=== PATIENT | female | born 1995 ===

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

== ENCOUNTER 2018-02-09 00:35 | Emergency (ER) | payer MEDICAID ==
--- NOTE | 2018-02-09 00:43 | C.PDOC ---
History Of Present Illness Patient presents to the ED with RLQ pain since yesterday. She describes the pain as sharp, stabbing and non-radiating. Patient is able to tolerate PO and denies nausea, vomiting, diarrhea, fever and chills. Time Seen by Provider: 02/09/18 00:43 History Per: Patient History/Exam Limitations: no limitations Onset/Duration Of Symptoms: Days Current Symptoms Are (Timing): Still Present Severity: Moderate Pain Scale Rating Of: 4 Location Of Pain/Discomfort: RLQ Radiation Of Pain To:: None Quality Of Discomfort: Sharp, Stabbing, Other (non-radiating ) Associated Symptoms: denies: Fever, Chills, Nausea, Vomiting, Diarrhea Exacerbating Factors: None Alleviating Factors: None Recent travel outside of the [place]: No Past Medical History Reviewed: Historical Data, Nursing Documentation, Vital Signs Family History: States: No Known Family Hx - Social History Hx Alcohol Use: No Hx Substance Use: No Review Of Systems Constitutional: Negative for: Fever, Chills Cardiovascular: Negative for: Chest Pain, Palpitations Respiratory: Negative for: Cough, Shortness of Breath Gastrointestinal: Positive for: Abdominal Pain (RLQ ). Negative for: Nausea, Vomiting, Diarrhea Neurological: Negative for: Weakness, Numbness Physical Exam - Physical Exam Appears: Non-toxic Skin: Warm, Dry Head: Normacephalic Oral Mucosa: Moist Neck: Supple Chest: Symmetrical, No Tenderness Cardiovascular: Rhythm Regular Respiratory: No Rales, No Rhonchi, No Wheezing Gastrointestinal/Abdominal: Soft, Tenderness (RLQ), Guarding (voluntary), Rebound (mild) Neurological/Psych: Oriented x3 ED Course And Treatment - Laboratory Results Result Diagrams: 02/09/18 01:30 02/09/18 01:30 ECG: Interpreted By Wa O2 Sat by Pulse Oximetry: 100 Pulse Ox Interpretation: Normal Progress Note: Ordered blood work and urinalysis. Administered Famotidine and IV fluids. Reevaluation Time: 04:27 Reassessment Condition: Improved Disposition Counseled Patient/Family Regarding: Studies Performed, Diagnosis, Need For Followup, Rx Given - Disposition Referrals: [facility] [Outside] [facility] [Outside] Disposition: HOME/ ROUTINE Disposition Time: 00:43 Condition: FAIR Additional Instructions: Please return if symptoms recur Prescriptions: Metronidazole [Flagyl] 500 mg PO TID #21 tablet Instructions: Acute Abdomen (Belly Pain), Adult (DC), Anemia Caused by Low Iron - Clinical Impression Clinical Impression: Abdominal pain, Microcytic anemia, Enteritis - Scribe Statement The provider has reviewed the documentation as recorded by the Scribe (Dayami Nash) All medical record entries made by the Scribe were at my direction and personally dictated by me. I have reviewed the chart and agree that the record accurately reflects my personal performance of the history, physical exam, medical decision making, and the department course for this patient. I have also personally directed, reviewed, and agree with the discharge instructions and disposition.
[2018-02-09] MEDS ORDERED: Sodium Chloride 0.9% 1,000 ML IV ONE (00:46)
[2018-02-09 00:54] VITALS: RESP 16; O2SAT 100; BMI 25.4
[2018-02-09 01:37] LABS: BASO % 0.2 % (0.0-2.0); EOS # 0.1 K/uL (0.0-0.7); EOS % 1.4 % (0.0-4.0); HEMOGLOBIN 7.2 g/dL (11.0-16.0); LYMPH # 3.1 K/uL (1.0-4.3); MEAN CORPUSCULAR HGB CONC 27.7 g/dL (33.0-37.0); MONO # 0.7 K/uL (0.0-0.8); MONO % 7.4 % (0.0-10.0); NEUT # 4.9 K/uL (1.8-7.0); RBC 4.48 Mil/uL (3.80-5.20); WHITE BLOOD COUNT 8.8 K/uL (4.8-10.8)
[2018-02-09 01:37] LABS: HCG,QUALITATIVE URINE NEGATIVE (NEGATIVE)
[2018-02-09 01:38] LABS: MEAN CELL VOLUME 57.8 fL (81.0-99.0)
[2018-02-09 01:42] LABS: INR 1.2; PROTHROMBIN TIME 12.7 SECONDS (9.7-12.2)
[2018-02-09 01:42] LABS: SQUAMOUS EPITHIAL 8 /hpf (0-5); URINE BACTERIA RARE (<OCC); URINE BILIRUBIN NEGATIVE (NEGATIVE); URINE BLOOD NEGATIVE (NEGATIVE); URINE CLARITY Hazy (Clear); URINE COLOR Yellow (YELLOW); URINE GLUCOSE (UA) NORMAL (Normal); URINE LEUKOCYTE ESTERASE 3+ Leu/uL (Negative); URINE PROTEIN NEGATIVE (NEGATIVE); URINE UROBILINOGEN NORMAL mg/dL (0.2-1.0)
[2018-02-09] MEDS ORDERED: Piperacillin/Tazobact 3.375 gm 100 ML IVPB STA (01:47)
[2018-02-09 01:50] LABS: ALB/GLOB RATIO 1.4 (1.0-2.1); ALBUMIN 4.4 g/dL (3.5-5.0); ALT/SGPT 21 U/L (9-52); AST/SGOT 15 U/L (14-36); BLOOD UREA NITROGEN 8 mg/dL (7-17); GFR NON-AFRICAN AMERICAN > 60
[2018-02-09] MEDS ORDERED: Piperacillin/Tazobact 3.375 gm 100 ML IVPB ONE (02:08)
[2018-02-09 02:20] LABS: LIPASE 98 U/L (23-300)
[2018-02-09] MEDS ORDERED: Iodixanol 320 MG/ML 100 ML BOTTLE IV ONE (02:26)
[2018-02-09 04:52] VITALS: BP 122/82; PULSE 88; TEMP 100
--- NOTE | 2018-02-09 12:19 | CT ---
Date of service: 02/09/2018 PROCEDURE: CT Abdomen and Pelvis with contrast HISTORY: rlq pain COMPARISON: None available. TECHNIQUE: Contrast dose: 100 mL Visipaque IV Radiation dose: Total exam DLP = 627.67 mGy-cm. This CT exam was performed using one or more of the following dose reduction techniques: Automated exposure control, adjustment of the mA and/or kV according to patient size, and/or use of iterative reconstruction technique. FINDINGS: LOWER THORAX: No visible consolidation, pleural effusion, or pneumothorax. LIVER: Unremarkable. GALLBLADDER AND BILE DUCTS: Unremarkable. PANCREAS: Unremarkable. SPLEEN: Unremarkable. ADRENALS: Unremarkable. KIDNEYS AND URETERS: The kidneys enhance symmetrically. No hydronephrosis or obstructing calculus identified. VASCULATURE: No aortic aneurysm. BOWEL: Stomach is nondistended. Lack of oral contrast limits evaluation for bowel pathology. Bowel loops appear within normal limits of caliber without evidence of obstruction. APPENDIX: The appendix appears within normal limits of caliber. No secondary signs of acute appendicitis. PERITONEUM: No significant free fluid. No definite free air. LYMPH NODES: Scattered prominent sub cm mesenteric and pericecal lymph nodes, nonspecific; consider mesenteric adenitis. BLADDER: Unremarkable. REPRODUCTIVE: Uterus is present. BONES: No acute osseous abnormality is detected. OTHER FINDINGS: None. IMPRESSION: Scattered prominent sub cm mesenteric and pericecal lymph nodes, nonspecific; consider mesenteric adenitis. Preliminary impression was provided by [employer]. Study marked for PA review.
== END 2018-02-09 04:53 | disposition home or self-care (01) ==
LOC: C.ER 00:35
DX: K52.9 Noninfective gastroenteritis and colitis, unspecified (principal); D50.9 Iron deficiency anemia, unspecified; R10.31 Right lower quadrant pain
CPT/HCPCS: 74177; 80053; 81001; 83690; 84703; 85025; 85610; 85730; 96374; 96375; 99284; J2543; J7030; Q9967

== ENCOUNTER 2018-05-23 12:24 | Inpatient (IN) | payer MEDICAID ==
[2018-05-23 12:29] VITALS: BMI 27.5
--- NOTE | 2018-05-23 13:00 | C.PDOC ---
History Of Present Illness 22 y/o female with a PMHx of anemia and mesenteric adenitis, presents to the ED with abdominal pain for 1 month. Pain is intermittent, localized over the RUQ, and described as bruising-type pain. No association with meals. States pain is not consistent with prior episodes of mesenteric adenitis. Patient also reports having some nausea but no vomiting. 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 Denies recent trauma or fall. Otherwise patient denies any fever, chills, constipation, diarrhea, dark or bloody stool. No abnormal vaginal discharge or rashes. Of note patient is about to finish menstruating. Time Seen by Provider: 05/23/18 12:59 Chief Complaint (Nursing): Abdominal Pain History Per: Patient History/Exam Limitations: no limitations Onset/Duration Of Symptoms: Days Current Symptoms Are (Timing): Still Present Location Of Pain/Discomfort: RUQ Quality Of Discomfort: "Pain", Other (Bruising) Associated Symptoms: Nausea Past Medical History Reviewed: Historical Data, Nursing Documentation, Vital Signs Vital Signs: Last Vital Signs Temp 98.6 F 05/23/18 12:34 Pulse 101 H 05/23/18 12:34 Resp 17 05/23/18 12:34 BP 119/75 05/23/18 12:34 Pulse Ox 100 05/23/18 12:34 - Medical History PMH: No Chronic Diseases Surgical History: No Surg Hx Family History: States: Unknown Family Hx - Social History Hx Tobacco Use: No Hx Alcohol Use: No Hx Substance Use: No - Immunization History Hx Influenza Vaccination: No Hx Pneumococcal Vaccination: No Review Of Systems Constitutional: Negative for: Fever, Chills Cardiovascular: Negative for: Palpitations Respiratory: Negative for: Shortness of Breath Gastrointestinal: Positive for: Nausea, Abdominal Pain (RUQ). Negative for: Vomiting, Diarrhea, Constipation, Melena, Hematochezia Genitourinary: Negative for: Dysuria, Frequency, Vaginal Discharge, Vaginal Bleeding Skin: Negative for: Rash Neurological: Negative for: Weakness, Dizziness Physical Exam - Physical Exam Appears: Non-toxic, No Acute Distress Skin: Warm, Dry, No Rash Head: Normacephalic Eye(s): bilateral: Normal Inspection, PERRL, EOMI Oral Mucosa: Moist Neck: Trachea Midline, Supple, Other (No meningeal signs) Chest: Symmetrical Cardiovascular: Rhythm Regular, No Friction Rub Respiratory: No Rales, No Rhonchi, No Wheezing Gastrointestinal/Abdominal: Soft, Tenderness (to the RUQ), No Guarding, No Rebound Extremity: Bilateral: Normal Color And Temperature Pulses: Left Dorsalis Pedis: Normal, Right Dorsalis Pedis: Normal Neurological/Psych: Oriented x3, Normal Speech, Normal Cranial Nerves Gait: Steady ED Course And Treatment - Laboratory Results Result Diagrams: 05/23/18 13:18 05/23/18 13:34 O2 Sat by Pulse Oximetry: 100 (RA) Pulse Ox Interpretation: Normal - CT Scan/US Abdominal US Other Rad Studies (CT/US): Read By Radiologist, Radiology Report Reviewed CT/US Interpretation: Accession No. : [id number]. Patient Name / ID : LISBETH FRIED / [id number]. Exam Date : 05/23/2018 13:44:02 ( Approved ). Study Comment : Sex / Age : F / 22Y. Creator : Maciej Brady MD. Dictator : Maciej Brady MD. Tig Welder : Field Tax Auditor : Maciej Brady MD. Approver2 : Report Date : 05/23/2018 14:30:05. My Comment : . Date of service: 05/23/2018. HISTORY: ruq pain. COMPARISON: Comparison is made with the previous CT of the abdomen and pelvis dated 02/09/2018. TECHNIQUE: Sonographic evaluation of the right upper quadrant of the abdomen. FINDINGS: LIVER: Measures 13.9 cm in length. Heterogeneous increased echogenicity of the liver parenchyma. No mass. No intrahepatic bile duct dilatation. GALLBLADDER: Partially contracted. No gallstones. COMMON BILE DUCT: Measures 4 mm. No stones. No dilatation. PANCREAS: Unremarkable as visualized. No mass. No ductal dilatation. RIGHT KIDNEY: Measures 10.5 x 4.6 x 4.4 cm in length. Normal echogenicity. No calculus, mass, or hydronephrosis. AORTA: No aneurysmal dilatation. IVC: Unremarkable. OTHER FINDINGS: None . IMPRESSION: Heterogeneous echogenic liver suggestive of hepatic steatosis. No evidence of cholelithiasis or acute cholecystitis. Medical Decision Making Medical Decision Makin22 y/o F with PMHx of anemia and mesenteric adenitis, p/w RUQ abdominal pain x 1 month. Reports bruising-type pain, intermittent, associated with nausea but no vomiting. No association with meals. Reports pain is not similar to prior hx of mesenteric adenitis. No suprapubic pain. Impression: Gastritis vs Gall bladder disease Plan: --Labs --Abdominal US --IV fluids infusing anemic to 6.8 will transfuse and admit no dark or bloody stool on requestioning. pt notes end of her period, not worse than normal. 1434 UA w/ 13WBC, +Squam. Given abd pain will rx. Blood consent done: pt agreeable to plan for admission and blood transfusion Pt notes she does not have a PMD currently: Paged Dr. Fernandez pt states that she would like a TVUS but denies any suprapubic abd pain does not want pain meds. 14:42 Pt in NAD, well appearing Discussed with Dr. Fernandez, accepts patient to service Disposition - Disposition Disposition Time: 14:35 Condition: GOOD Forms: [facility] (Mongolian) - Clinical Impression Clinical Impression: Anemia, UTI (urinary tract infection) - Scribe Statement The provider has reviewed the documentation as recorded by the Lionel Elizabeth Provider Attestation: All medical record entries made by the Lionel were at my direction and personally dictated by me. I have reviewed the chart and agree that the record accurately reflects my personal performance of the history, physical exam, medical decision making, and the department course for this patient. I have also personally directed, reviewed, and agree with the discharge instructions and disposition.
[2018-05-23] MEDS ORDERED: Sodium Chloride 0.9% 1,000 ML IV ONE (13:02)
[2018-05-23 13:21] LABS: BASO # 0.1 K/uL (0.0-0.2); BASO % 0.7 % (0.0-2.0); EOS # 0.1 K/uL (0.0-0.7); EOS % 0.8 % (0.0-4.0); HEMOGLOBIN 6.8 g/dL (11.0-16.0); LYMPH # 2.8 K/uL (1.0-4.3); LYMPH % 34.6 % (20.0-40.0); MEAN CORPUSCULAR HGB CONC 27.1 g/dL (33.0-37.0); MONO # 0.4 K/uL (0.0-0.8); MONO % 5.2 % (0.0-10.0); NEUT # 4.7 K/uL (1.8-7.0); NEUT % 58.7 % (50.0-75.0); NRBC % 0.1 % (0.0-2.0); RBC 4.28 Mil/uL (3.80-5.20); RED CELL DISTRIBUTION WIDTH 20.8 % (11.5-14.5)
[2018-05-23 13:23] LABS: MEAN CELL VOLUME 58.9 fL (81.0-99.0)
[2018-05-23 13:39] LABS: SQUAMOUS EPITHIAL 10 /hpf (0-5); URINE AMORPHOUS SEDIMENT RARE /ul (<OCC); URINE BILIRUBIN NEGATIVE (NEGATIVE); URINE BLOOD 2+ (NEGATIVE); URINE CLARITY Turbid (Clear); URINE COLOR Yellow (YELLOW); URINE GLUCOSE (UA) NORMAL (Normal); URINE LEUKOCYTE ESTERASE 3+ Leu/uL (Negative); URINE PROTEIN NEGATIVE (NEGATIVE); URINE UROBILINOGEN NORMAL mg/dL (0.2-1.0)
[2018-05-23 13:45] LABS: ALB/GLOB RATIO 1.3 (1.0-2.1); ALBUMIN 4.3 g/dL (3.5-5.0); ALT/SGPT 17 U/L (9-52); AST/SGOT 61 U/L (14-36); BLOOD UREA NITROGEN 11 mg/dL (7-17); CALCIUM 8.6 mg/dl (8.6-10.4); GFR NON-AFRICAN AMERICAN > 60; LIPASE 136 U/L (23-300)
--- NOTE | 2018-05-23 14:33 | US ---
Date of service: 05/23/2018 HISTORY: ruq pain COMPARISON: Comparison is made with the previous CT of the abdomen and pelvis dated 02/09/2018 TECHNIQUE: Sonographic evaluation of the right upper quadrant of the abdomen. FINDINGS: LIVER: Measures 13.9 cm in length. Heterogeneous increased echogenicity of the liver parenchyma. No mass. No intrahepatic bile duct dilatation. GALLBLADDER: Partially contracted. No gallstones. COMMON BILE DUCT: Measures 4 mm. No stones. No dilatation. PANCREAS: Unremarkable as visualized. No mass. No ductal dilatation. RIGHT KIDNEY: Measures 10.5 x 4.6 x 4.4 cm in length. Normal echogenicity. No calculus, mass, or hydronephrosis. AORTA: No aneurysmal dilatation. IVC: Unremarkable. OTHER FINDINGS: None . IMPRESSION: Heterogeneous echogenic liver suggestive of hepatic steatosis. No evidence of cholelithiasis or acute cholecystitis.
[2018-05-23] MEDS ORDERED: Sodium Chloride 0.9% 1,000 ML ONE (14:43)
--- NOTE | 2018-05-23 14:50 | CP.PCM.HP ---
History of Present Illness - History of Present Illness History of Present Illness: 22 y/o female with a PMHx of anemia and mesenteric adenitis, presents to the ED with abdominal pain for 1 month. Pain is intermittent, localized over the RUQ, and described as bruising-type pain. No association with meals. States pain is not consistent with prior episodes of mesenteric adenitis. Patient also reports having some nausea but no vomiting. She did not take any pain meds PT pt. had H/H of 6.0n No visible bleeding No GI bleeding Present on Admission - Present on Admission Any Indicators Present on Admission: No Review of Systems - Review of Systems All systems: reviewed and no additional remarkable complaints except (RUQ PAIN) Past Patient History - Past Social History Smoking Status: Never Smoked - PSYCHIATRIC Hx Substance Use: No - SURGICAL HISTORY Hx Surgeries: No - ANESTHESIA Hx Anesthesia: No Meds Allergies/Adverse Reactions: Allergies Allergy/AdvReac Type Severity Reaction Status Date / Time No Known Allergies Allergy Verified 05/23/18 12:28 Physical Exam - Constitutional Appears: Well - Head Exam Head Exam: ATRAUMATIC, NORMAL INSPECTION, NORMOCEPHALIC - Eye Exam Eye Exam: EOMI, Normal appearance, PERRL - ENT Exam ENT Exam: Mucous Membranes Moist, Normal Exam - Neck Exam Neck exam: Positive for: Normal Inspection - Respiratory Exam Respiratory Exam: Clear to Auscultation Bilateral, NORMAL BREATHING PATTERN - Cardiovascular Exam Cardiovascular Exam: REGULAR RHYTHM - GI/Abdominal Exam GI & Abdominal Exam: Normal Bowel Sounds, Tenderness (RUQ ). absent: Rebound Results - Vital Signs Recent Vital Signs: Last Vital Signs Temp 98.6 F 05/23/18 12:34 Pulse 101 H 05/23/18 12:34 Resp 17 05/23/18 12:34 BP 119/75 05/23/18 12:34 Pulse Ox 100 05/23/18 14:46 - Labs Result Diagrams: 05/23/18 13:18 05/23/18 13:34 Labs: Laboratory Results - last 24 hr 05/23/18 05/23/18 05/23/18 13:18 13:20 13:34 WBC 8.0 RBC 4.28 Hgb 6.8 L Hct 25.2 L MCV 58.9 L MCH 16.0 L MCHC 27.1 L RDW 20.8 H Plt Count 358 MPV 9.0 Neut % (Auto) 58.7 Lymph % (Auto) 34.6 Gilliam % (Auto) 5.2 Eos % (Auto) 0.8 Baso % (Auto) 0.7 Neut # (Auto) 4.7 Lymph # (Auto) 2.8 Gilliam # (Auto) 0.4 Eos # (Auto) 0.1 Baso # (Auto) 0.1 Sodium 136 Potassium 3.8 Chloride 103 Carbon Dioxide 24 Anion Gap 13 BUN 11 Creatinine 0.5 L Est GFR ( Amer) > 60 Est GFR (Non-Af Amer) > 60 Random Glucose 96 Calcium 8.6 Total Bilirubin 0.3 AST 61 H D ALT 17 Alkaline Phosphatase 108 Total Protein 7.5 Albumin 4.3 Globulin 3.2 Albumin/Globulin Ratio 1.3 Lipase 136 Urine Color Yellow Urine Clarity Turbid Urine pH 8.0 Ur Specific Mozelle 1.017 Urine Protein Negative Urine Glucose (UA) Normal Urine Ketones Negative Urine Blood 2+ H Urine Nitrate Negative Urine Bilirubin Negative Urine Urobilinogen Normal Ur Leukocyte Esterase 3+ H Urine WBC (Auto) 13 H Urine RBC (Auto) 1 Ur Squamous Epith Cells 10 H Amorphous Sediment Rare H Assessment & Plan (1) Anemia Status: Acute (2) UTI (urinary tract infection) Status: Acute (3) Abdominal pain Status: Acute
[2018-05-23 14:55] LABS: INR 1.2
[2018-05-23] MEDS ORDERED: Iohexol 240 (50 ml) PO ONE (15:32)
[2018-05-23] MEDS ORDERED: Iohexol 240 (50 ml) ONE (15:40)
--- NOTE | 2018-05-23 16:53 | US ---
Date of service: 05/23/2018 HISTORY: pt request, end of period COMPARISON: None available TECHNIQUE: Real-time transabdominal pelvic ultrasound was performed. In addition a transvaginal pelvic ultrasound was necessary to better depict pelvic anatomy. FINDINGS: UTERUS: Measures 6.9 x 3.3 x 4.4 cm. Anteverted. ENDOMETRIUM: Measures 5 mm in diameter. CERVIX: No cervical abnormality identified. RIGHT OVARY: Measures 2.2 x 1.7 x 2.0 cm. Blood flow is demonstrated. LEFT OVARY: Measures 2.2 X 2.0 x 2.3 cm. Blood flow is demonstrated. FREE FLUID: No significant free fluid noted. OTHER FINDINGS: None. IMPRESSION: Unremarkable pelvic ultrasound as above.
[2018-05-24 07:35] LABS: BASO % 0.3 % (0.0-2.0); EOS # 0.1 K/uL (0.0-0.7); EOS % 1.6 % (0.0-4.0); HEMOGLOBIN 8.5 g/dL (11.0-16.0); LYMPH # 3.2 K/uL (1.0-4.3); LYMPH % 41.5 % (20.0-40.0); MEAN CORPUSCULAR HEMOGLOBIN 18.6 pg (27.0-31.0); MEAN CORPUSCULAR HGB CONC 29.1 g/dL (33.0-37.0); MEAN PLATELET VOLUME 9.3 fL (7.2-11.7); MONO # 0.6 K/uL (0.0-0.8); MONO % 7.9 % (0.0-10.0); NEUT # 3.8 K/uL (1.8-7.0); NEUT % 48.7 % (50.0-75.0); RBC 4.56 Mil/uL (3.80-5.20); RED CELL DISTRIBUTION WIDTH 26.4 % (11.5-14.5); WHITE BLOOD COUNT 7.7 K/uL (4.8-10.8)
[2018-05-24 07:41] LABS: IRON 32 ug/dL (37-170)
[2018-05-24 07:44] LABS: MEAN CELL VOLUME 63.9 fL (81.0-99.0)
[2018-05-24 07:45] LABS: ALB/GLOB RATIO 1.5 (1.0-2.1); ALBUMIN 4.3 g/dL (3.5-5.0); ALT/SGPT 18 U/L (9-52); AST/SGOT 23 U/L (14-36); BLOOD UREA NITROGEN 10 mg/dL (7-17); CALCIUM 8.8 mg/dl (8.6-10.4); GFR NON-AFRICAN AMERICAN > 60
[2018-05-24 07:53] LABS: % IRON SATURATION 7 (20-55); TOTAL IRON BINDING CAPACITY 470 ug/dL (250-450)
[2018-05-24 08:17] LABS: FERRITIN 3.4 ng/mL
[2018-05-24] MEDS ORDERED: Iohexol 240 (50 ml) PO ONE (08:45)
--- NOTE | 2018-05-24 11:11 | CP.PCM.PN ---
Subjective - Date & Time of Evaluation Date of Evaluation: 05/24/18 Time of Evaluation: 11:10 - Subjective Subjective: after 1 pack of blood transfusion hemoglobin is 7.7 Pain in the abdomen is less No nausea or vomiting Check CT of the abdomen. Objective - Vital Signs/Intake and Output Vital Signs (last 24 hours): Temp Pulse Resp BP Pulse Ox 97.8 F 75 20 106/62 99 05/24/18 08:31 05/24/18 08:31 05/24/18 08:31 05/24/18 08:31 05/24/18 08:31 Intake and Output: 05/23/18 05/24/18 23:59 11:59 Intake Total 300 Balance 300 - Medications Medications: Current Medications Influenza Virus Vaccine (Flucelvax Quad 0658-2428 Syr) 60 mcg IM .ONCE ONE Stop: 05/26/18 10:01 Pneumococcal Polyvalent Vaccine (Pneumovax 23 Vaccine) 0.5 ml IM .ONCE ONE Stop: 05/26/18 10:01 - Labs Labs: 05/24/18 07:23 05/24/18 07:23 PT 13.0 SECONDS (9.7-12.2) H 05/23/18 14:36 INR 1.2 05/23/18 14:36 APTT 27 SECONDS (21-34) 05/23/18 14:36 Assessment and Plan (1) Anemia Status: Acute (2) UTI (urinary tract infection) Status: Acute (3) Abdominal pain Status: Acute
[2018-05-24] MEDS ORDERED: Ferric Sodium Gluconat Complex 62.5 mg/5 ml Vial IVPB SCH (11:15)
--- NOTE | 2018-05-24 12:06 | CT ---
PROCEDURE: CT Abdomen and Pelvis without IV contrast. HISTORY: mesentric adenitis COMPARISON: CT abdomen pelvis with IV contrast performed 02/09/18, gallbladder ultrasound performed 05/23/18, pelvic ultrasound performed 05/23/19 TECHNIQUE: Contiguous axial images of the abdomen and pelvis. Oral contrast was administered. No IV contrast given. Coronal and Sagittal reformats generated and reviewed. Radiation dose: Total exam DLP = 367.62 mGy-cm. This CT exam was performed using one or more of the following dose reduction techniques: Automated exposure control, adjustment of the mA and/or kV according to patient size, and/or use of iterative reconstruction technique. FINDINGS: There is limited evaluation of the solid organs without the administration of IV contrast. LOWER THORAX: No visible consolidation, pleural effusion, or pneumothorax. Visualized portions of the heart appear within normal limits of size. LIVER: Unremarkable unenhanced appearance. GALLBLADDER AND BILE DUCTS: Unremarkable unenhanced appearance. PANCREAS: Unremarkable unenhanced appearance. SPLEEN: Unremarkable unenhanced appearance. ADRENALS: Unremarkable unenhanced appearance. KIDNEYS AND URETERS: No hydronephrosis or obstructing renal calculus. BLADDER: The urinary bladder appears unremarkable. REPRODUCTIVE: Uterus is present. APPENDIX: The appendix appears within normal limits of caliber. No secondary signs of acute appendicitis. BOWEL: The stomach is nondistended. The bowel loops appear within normal limits of caliber without evidence of intestinal obstruction. Diverticulosis without CT evidence of acute diverticulitis. PERITONEUM: No significant free fluid. No definite free air. LYMPH NODES: Sub cm mesenteric lymph nodes, nonspecific. No bulky lymphadenopathy identified. VASCULATURE: No aortic aneurysm. BONES: No acute osseous abnormality is detected. OTHER FINDINGS: None. IMPRESSION: No acute findings identified. Findings as above.
[2018-05-24] MEDS: Ferric Sodium Gluconat Complex 125 MG in Sodium Chloride 0.9% 100 ML IVPB SCH (13:45)
[2018-05-25 07:39] LABS: BASO % 0.6 % (0.0-2.0); EOS # 0.2 K/uL (0.0-0.7); EOS % 1.7 % (0.0-4.0); HEMOGLOBIN 8.6 g/dL (11.0-16.0); LYMPH # 3.3 K/uL (1.0-4.3); LYMPH % 37.7 % (20.0-40.0); MEAN CELL VOLUME 63.8 fL (81.0-99.0); MEAN CORPUSCULAR HEMOGLOBIN 18.7 pg (27.0-31.0); MEAN CORPUSCULAR HGB CONC 29.4 g/dL (33.0-37.0); MEAN PLATELET VOLUME 9.3 fL (7.2-11.7); MONO # 0.6 K/uL (0.0-0.8); MONO % 6.8 % (0.0-10.0); NEUT # 4.6 K/uL (1.8-7.0); NEUT % 53.2 % (50.0-75.0); RBC 4.58 Mil/uL (3.80-5.20); RED CELL DISTRIBUTION WIDTH 26.7 % (11.5-14.5); WHITE BLOOD COUNT 8.7 K/uL (4.8-10.8)
--- NOTE | 2018-05-25 12:25 | CP.PCM.PN ---
Subjective - Date & Time of Evaluation Date of Evaluation: 05/25/18 Time of Evaluation: 12:24 - Subjective Subjective: HG IS 8.3 CT ABD NEG NO FURTHER ABD PAIN CONT IV IRON Objective - Vital Signs/Intake and Output Vital Signs (last 24 hours): Temp Pulse Resp BP Pulse Ox 98.3 F 77 20 111/70 100 05/25/18 07:00 05/25/18 07:00 05/25/18 07:00 05/25/18 07:00 05/25/18 07:00 Intake and Output: 05/25/18 05/25/18 11:59 23:59 Intake Total 300 Balance 300 - Medications Medications: Current Medications Ferric Sodium Gluconate Complex 125 mg/ Sodium Chloride 110 mls @ 110 mls/hr IVPB Q24H MARILU Stop: 06/01/18 13:01 Last Admin: 05/24/18 13:45 Dose: 110 mls/hr Influenza Virus Vaccine (Flucelvax Quad [id number] Syr) 60 mcg IM .ONCE ONE Stop: 05/26/18 10:01 Pneumococcal Polyvalent Vaccine (Pneumovax 23 Vaccine) 0.5 ml IM .ONCE ONE Stop: 05/26/18 10:01 - Labs Labs: 05/25/18 07:17 05/24/18 07:23 PT 13.0 SECONDS (9.7-12.2) H 05/23/18 14:36 INR 1.2 05/23/18 14:36 APTT 27 SECONDS (21-34) 05/23/18 14:36 Assessment and Plan (1) Anemia Status: Acute (2) UTI (urinary tract infection) Status: Acute (3) Abdominal pain Status: Acute
[2018-05-25] MEDS: Ferric Sodium Gluconat Complex 125 MG in Sodium Chloride 0.9% 100 ML IVPB SCH (13:55)
[2018-05-26 08:09] LABS: BASO % 0.5 % (0.0-2.0); EOS # 0.2 K/uL (0.0-0.7); EOS % 1.9 % (0.0-4.0); HEMOGLOBIN 8.7 g/dL (11.0-16.0); LYMPH # 3.4 K/uL (1.0-4.3); LYMPH % 38.9 % (20.0-40.0); MEAN CORPUSCULAR HEMOGLOBIN 18.6 pg (27.0-31.0); MEAN CORPUSCULAR HGB CONC 29.1 g/dL (33.0-37.0); MEAN PLATELET VOLUME 9.1 fL (7.2-11.7); MONO # 0.6 K/uL (0.0-0.8); MONO % 6.8 % (0.0-10.0); NEUT # 4.5 K/uL (1.8-7.0); NEUT % 51.9 % (50.0-75.0); RBC 4.66 Mil/uL (3.80-5.20); RED CELL DISTRIBUTION WIDTH 24.8 % (11.5-14.5); WHITE BLOOD COUNT 8.7 K/uL (4.8-10.8)
[2018-05-26] MEDS ORDERED: Influenza Vaccine 60 mcg/0.5 mL SYR (4YR UP) IM ONE (10:00)
[2018-05-26] MEDS ORDERED: Pneumococcal 23-Valent Vaccine IM ONE (10:00)
--- NOTE | 2018-05-26 12:11 | CP.PCM.PN ---
Subjective - Date & Time of Evaluation Date of Evaluation: 05/26/18 Time of Evaluation: 12:11 - Subjective Subjective: HG IS 8.7 CONT IRON IV ONE MORE DAY Objective - Vital Signs/Intake and Output Vital Signs (last 24 hours): Temp Pulse Resp BP Pulse Ox 98.1 F 71 20 107/69 100 05/26/18 08:00 05/26/18 08:00 05/26/18 08:00 05/26/18 08:00 05/26/18 08:00 Intake and Output: 05/26/18 05/26/18 11:59 23:59 Intake Total 300 Balance 300 - Medications Medications: Current Medications Ferric Sodium Gluconate Complex 125 mg/ Sodium Chloride 110 mls @ 110 mls/hr IVPB Q24H MARILU Stop: 06/01/18 13:01 Last Admin: 05/25/18 13:55 Dose: 110 mls/hr - Labs Labs: 05/26/18 07:46 05/24/18 07:23 PT 13.0 SECONDS (9.7-12.2) H 05/23/18 14:36 INR 1.2 05/23/18 14:36 APTT 27 SECONDS (21-34) 05/23/18 14:36 Assessment and Plan (1) Anemia Status: Acute (2) UTI (urinary tract infection) Status: Acute (3) Abdominal pain Status: Acute
[2018-05-26] MEDS: Ferric Sodium Gluconat Complex 125 MG in Sodium Chloride 0.9% 100 ML IVPB SCH (13:16)
[2018-05-27 07:23] LABS: BASO % 0.3 % (0.0-2.0); EOS # 0.1 K/uL (0.0-0.7); EOS % 1.4 % (0.0-4.0); HEMOGLOBIN 8.7 g/dL (11.0-16.0); LYMPH # 3.2 K/uL (1.0-4.3); LYMPH % 34.7 % (20.0-40.0); MEAN CELL VOLUME 64.6 fL (81.0-99.0); MEAN CORPUSCULAR HEMOGLOBIN 18.5 pg (27.0-31.0); MEAN CORPUSCULAR HGB CONC 28.7 g/dL (33.0-37.0); MEAN PLATELET VOLUME 9.3 fL (7.2-11.7); MONO # 0.5 K/uL (0.0-0.8); MONO % 5.7 % (0.0-10.0); NEUT # 5.4 K/uL (1.8-7.0); NEUT % 57.9 % (50.0-75.0); RBC 4.71 Mil/uL (3.80-5.20); RED CELL DISTRIBUTION WIDTH 27.3 % (11.5-14.5); WHITE BLOOD COUNT 9.3 K/uL (4.8-10.8)
[2018-05-27 08:27] VITALS: BP 103/63; PULSE 51; RESP 20; TEMP 97.6; O2SAT 99
--- NOTE | 2018-05-27 11:40 | CP.PCM.DIS ---
Provider - Provider Date of Admission: 05/23/18 14:43 Attending physician: Ladonna Fernandez MD Time Spent in preparation of Discharge (in minutes): 35 Diagnosis - Discharge Diagnosis (1) Anemia Status: Acute (2) UTI (urinary tract infection) Status: Acute (3) Abdominal pain Status: Acute Hospital Course - Lab Results Lab Results: Micro Results 05/23/18 Unknown Urine,Clean Catch Urine Culture - Final No Growth (<1,000 CFU/ML) Most Recent Lab Values WBC 9.3 K/uL (4.8-10.8) 05/27/18 07:09 RBC 4.71 Mil/uL (3.80-5.20) 05/27/18 07:09 Hgb 8.7 g/dL (11.0-16.0) L 05/27/18 07:09 Hct 30.4 % (34.0-47.0) L 05/27/18 07:09 MCV 64.6 fL (81.0-99.0) L 05/27/18 07:09 MCH 18.5 pg (27.0-31.0) L 05/27/18 07:09 MCHC 28.7 g/dL (33.0-37.0) L 05/27/18 07:09 RDW 27.3 % (11.5-14.5) H 05/27/18 07:09 Plt Count 347 K/uL (130-400) 05/27/18 07:09 MPV 9.3 fL (7.2-11.7) 05/27/18 07:09 Neut % (Auto) 57.9 % (50.0-75.0) 05/27/18 07:09 Lymph % (Auto) 34.7 % (20.0-40.0) 05/27/18 07:09 Harlan % (Auto) 5.7 % (0.0-10.0) 05/27/18 07:09 Eos % (Auto) 1.4 % (0.0-4.0) 05/27/18 07:09 Baso % (Auto) 0.3 % (0.0-2.0) 05/27/18 07:09 Neut # (Auto) 5.4 K/uL (1.8-7.0) 05/27/18 07:09 Lymph # (Auto) 3.2 K/uL (1.0-4.3) 05/27/18 07:09 Harlan # (Auto) 0.5 K/uL (0.0-0.8) 05/27/18 07:09 Eos # (Auto) 0.1 K/uL (0.0-0.7) 05/27/18 07:09 Baso # (Auto) 0.0 K/uL (0.0-0.2) 05/27/18 07:09 Differential Comment 05/25/18 07:17 PT 13.0 SECONDS (9.7-12.2) H 05/23/18 14:36 INR 1.2 05/23/18 14:36 APTT 27 SECONDS (21-34) 05/23/18 14:36 Sodium 139 mmol/L (132-148) 05/24/18 07:23 Potassium 4.1 mmol/L (3.6-5.2) 05/24/18 07:23 Chloride 104 mmol/L (98-107) 05/24/18 07:23 Carbon Dioxide 26 mmol/L (22-30) 05/24/18 07:23 Anion Gap 12 (10-20) 05/24/18 07:23 BUN 10 mg/dL (7-17) 05/24/18 07:23 Creatinine 0.6 mg/dL (0.7-1.2) L 05/24/18 07:23 Est GFR ( Amer) > 60 05/24/18 07:23 Est GFR (Non-Af Amer) > 60 05/24/18 07:23 Random Glucose 87 mg/dL (65-105) 05/24/18 07:23 Calcium 8.8 mg/dl (8.6-10.4) 05/24/18 07:23 Phosphorus 4.3 mg/dL (2.5-4.5) 05/24/18 07:23 Magnesium 2.2 mg/dL (1.6-2.3) 05/24/18 07:23 Iron 32 ug/dL (37-170) L 05/24/18 07:23 TIBC 470 ug/dL (250-450) H 05/24/18 07:23 % Saturation 7 (20-55) L 05/24/18 07:23 Ferritin 3.4 ng/mL 05/24/18 07:23 Total Bilirubin 0.6 mg/dL (0.2-1.3) 05/24/18 07:23 AST 23 U/L (14-36) 05/24/18 07:23 ALT 18 U/L (9-52) 05/24/18 07:23 Alkaline Phosphatase 93 U/L (38-126) 05/24/18 07:23 Total Protein 7.2 g/dL (6.3-8.3) 05/24/18 07:23 Albumin 4.3 g/dL (3.5-5.0) 05/24/18 07:23 Globulin 2.9 gm/dL (2.2-3.9) 05/24/18 07:23 Albumin/Globulin Ratio 1.5 (1.0-2.1) 05/24/18 07:23 Lipase 136 U/L (23-300) 05/23/18 13:34 Urine Color Yellow (YELLOW) 05/23/18 13:20 Urine Clarity Turbid (Clear) 05/23/18 13:20 Urine pH 8.0 (5.0-8.0) 05/23/18 13:20 Ur Specific Bastian 1.017 (1.003-1.030) 05/23/18 13:20 Urine Protein Negative mg/dL (NEGATIVE) 05/23/18 13:20 Urine Glucose (UA) Normal mg/dL (Normal) 05/23/18 13:20 Urine Ketones Negative mg/dL (NEGATIVE) 05/23/18 13:20 Urine Blood 2+ (NEGATIVE) H 05/23/18 13:20 Urine Nitrate Negative (NEGATIVE) 05/23/18 13:20 Urine Bilirubin Negative (NEGATIVE) 05/23/18 13:20 Urine Urobilinogen Normal mg/dL (0.2-1.0) 05/23/18 13:20 Ur Leukocyte Esterase 3+ Chelle/uL (Negative) H 05/23/18 13:20 Urine WBC (Auto) 13 /hpf (0-5) H 05/23/18 13:20 Urine RBC (Auto) 1 /hpf (0-3) 05/23/18 13:20 Ur Squamous Epith Cells 10 /hpf (0-5) H 05/23/18 13:20 Amorphous Sediment Rare /ul (<OCC) H 05/23/18 13:20 Blood Type O POSITIVE 05/23/18 14:36 Antibody Screen Negative 05/23/18 14:36 - Hospital Course Hospital Course: 22 y/o female with a PMHx of anemia and mesenteric adenitis, presents to the ED with abdominal pain for 1 month. Pain is intermittent, localized over the RUQ, and described as bruising-type pain. No association with meals. States pain is not consistent with prior episodes of mesenteric adenitis. Patient also reports having some nausea but no vomiting. She did not take any pain meds PT Patient received 1 packed cells for blood transfusion. Posttransfusion hemoglobin was 7.7. Serum iron studies showed iron deficiency anemia. Patient was given IV iron. Prior to discharge hemoglobin was 8.7. CAT scan of the abdomen was negative. Patient has no further pain in the abdomen or chest.. GI workup was negative for any bleeding Patient currently stable no complaints and will be discharged on by mouth iron once a day to be followed up by her PMD Discharge Exam - Head Exam Head Exam: ATRAUMATIC, NORMAL INSPECTION, NORMOCEPHALIC Discharge Plan - Follow Up Plan Condition: GOOD Disposition: HOME/ ROUTINE Additional Instructions: FOLLOW UP WITH DR FERNANDEZ IN HIS OFFICE CALL FOR APPOINTMENT CONTINUE HOME MEDICATION ACTIVITY TOLERATED CALL DR FERNANDEZ OR GO TO THE EMERGENCY ROOM IF SYMPTOM RETURN OR WORSENING Referrals: Ladonna Fernandez MD [Staff Provider] -
[2018-05-27] MEDS: Ferric Sodium Gluconat Complex 125 MG in Sodium Chloride 0.9% 100 ML IVPB SCH (13:53)
== END 2018-05-27 15:56 | disposition home or self-care (01) | DRG 395 ==
LOC: C.ER 12:24 → C.9E 14:43 → C.3T 16:59
PROVIDERS: ADMIT Internal Medicine Cardiovascular Disease; ATTEND Internal Medicine Cardiovascular Disease
PROC: 30233N1 Transfusion of Nonautologous Red Blood Cells into Peripheral Vein, Percutaneous Approach (ICD-10-PCS; principal; 2018-05-23)
DX: D50.9 Iron deficiency anemia, unspecified (principal); N39.0 Urinary tract infection, site not specified; I88.0 Nonspecific mesenteric lymphadenitis